=== PATIENT | female | born 1995 | race Caucasian/White ===

== ENCOUNTER 2016-12-23 23:44 | Emergency (ER) | payer OTHER ==
[~2016-12-23] VITALS: Ht 162.6 cm; Wt 73.6 kg
[~2016-12-23 23:44] MED LIST: INDOCIN50 MG PO
[2016-12-24 01:08] VITALS: BP 135/92
== END 2016-12-24 01:09 | disposition home or self-care (01) ==
LOC: EME 23:44
DX: Z77.098 Contact with and (suspected) exposure to other hazardous, chiefly nonmedicinal, chemicals (principal); H53.8 Other visual disturbances; H57.12 Ocular pain, left eye
CPT/HCPCS: 99281; 99282